=== PATIENT | female | born 1940 | race Caucasian/White ===

== ENCOUNTER 2018-05-18 11:02 | Observation (INO) | payer MEDICARE ==
[2018-05-18] MEDS ORDERED: Meclizine 25 MG Tab PO ONE (11:30)
[2018-05-18] MEDS ORDERED: Ondansetron 4 MG Tab.DIS PO ONE (11:31)
--- NOTE | 2018-05-18 11:37 | EDM.PDOC ---
ED HPI GENERAL MEDICAL PROBLEM - General Chief Complaint: ENT Problem Stated Complaint: VERTIGO,NAUSEA Time Seen by Provider: 05/18/18 11:25 Source of Information: Reports: Patient, EMS History Limitations: Reports: No Limitations - History of Present Illness INITIAL COMMENTS - FREE TEXT/NARRATIVE: Disha comes into [facility] ED by EMS with sxs of progressive vertigo. Initial sxs occurred yesterday evening when she got up from the sofa around 9 pm. She felt a rocking or pitching motion associated with some fullness in the R ear. There was no reported loss of hearing, discharge, or nasal congestion. Sxs remained mild and she was able to sleep overnight, but upon arising sxs of vertigo had escalated. There was associated nausea and some vomiting. There was no reported headache, chest pain, SOB, palpitations, LOC, or tremors. She tried no meds, but summoned EMS for transport to ED. Currently, she is comfortable while laying flat, and any effort to turn head to the R or to raise head elicits sxs. - Related Data Allergies Allergy/AdvReac Type Severity Reaction Status Date / Time Hzbhqrx-Kti-Fgm Reductase Allergy Pain Verified 05/18/18 11:10 Inhibitor Home Meds: Home Meds Fish Oil/DHA/EPA [Fish Oil 1,200 MG] 1 each PO DAILY 05/18/18 [History] Metoprolol Tartrate 25 mg PO DAILY 05/18/18 [History] Naproxen Sodium [Aleve] 220 mg PO BID PRN 05/18/18 [History] Nitroglycerin 0.4 mg SL ASDIRECTED PRN 05/18/18 [History] Past Medical History Cardiovascular History: Reports: CAD, Hypertension, Stents Oncologic (Cancer) History: Reports: Breast - Past Surgical History Cardiovascular Surgical History: Reports: Coronary Artery Stent Musculoskeletal Surgical History: Reports: Other (See Below) (titanium plate R elbow) ED ROS GENERAL - Review of Systems Review Of Systems: See Below Constitutional: Reports: No Symptoms HEENT: Reports: Vertigo, Other (R ear fullness) Respiratory: Reports: No Symptoms Cardiovascular: Reports: No Symptoms Endocrine: Reports: No Symptoms GI/Abdominal: Reports: Decreased Appetite, Nausea, Vomiting : Reports: No Symptoms Musculoskeletal: Reports: No Symptoms Skin: Reports: No Symptoms Neurological: Reports: Dizziness Psychiatric: Reports: No Symptoms Hematologic/Lymphatic: Reports: No Symptoms Immunologic: Reports: No Symptoms ED EXAM, DIZZINESS - Physical Exam Exam: See Below Exam Limited By: No Limitations General Appearance: Alert, WD/WN, Anxious, Mild Distress Eye Exam: Bilateral Eye: EOMI, Normal Inspection, Nystagmus, PERRL Nystagmus: worsens with head to R Ears: Normal External Exam, Normal Canal, Normal TMs Nose: Normal Inspection Throat/Mouth: Normal Inspection, Normal Lips, Normal Teeth, Normal Gums, Normal Oropharynx, Normal Voice, No Airway Compromise Head Exam: Normocephalic Vertigo: worsens with head to R Neck: Normal Inspection, Supple, Non-Tender Respiratory/Chest: Lungs Clear, Chest Non-Tender Cardiovascular: Regular Rate, Rhythm, No Murmur GI/Abdominal: Normal Bowel Sounds, Soft, Non-Tender, No Organomegaly, No Distention, No Mass (Female) Exam: Deferred Rectal (Female) Exam: Deferred Neurological: Alert, Normal Mood/Affect, CN II-XII Intact, No Motor/Sensory Deficits, Oriented x 3 Back Exam: Normal Inspection Extremities: Normal Inspection Psychiatric: Normal Affect, Anxious Skin Exam: Warm, Dry, Intact, Normal Color, No Rash Course - Vital Signs Text/Narrative:: Following assessment for new onset vertigo, suspected to be vestibular neuronitis, I initially administered Meclizine 25 mg po, Zofran ODT 4 mg which she vomited about 10 minutes later. I then started an IV D5LR at 150 ml/hr, and administered Benadryl 25 mg IV, Ativan 0.5 mg IV, and Zofran 4 mg IV. Sxs seem to improve and she rested quietly, while RN gradually raised HOB to approach functional position to accomodate vertigo. Attempts to ambulate have required 2 assistants, and she is incapable of being home alone tonight. She will be admitted to Observation. Last Recorded V/S: Last Vital Signs Temp 36.4 C 05/18/18 11:02 Pulse 52 L 05/18/18 11:02 Resp 11 L 05/18/18 11:02 BP 151/69 H 05/18/18 11:02 Pulse Ox 98 05/18/18 12:45 - Orders/Labs/Meds Orders: Active Orders 24 hr Category Date Time Status Dextrose 5%-Lactated Ringers 1,000 ml Med 05/18/18 12:15 Active IV ASDIRECTED Sodium Chloride 0.9% [Saline Flush] Med 05/18/18 12:04 Active 10 ml FLUSH ASDIRECTED PRN Peripheral IV Insertion Adult [OM.PC] Routine Oth 05/18/18 12:04 Ordered Medication Orders Dextrose/Lactated Ringer's (Dextrose 5%-Lactated Ringers) 1,000 mls @ 150 mls/ hr IV ASDIRECTED BRI Last Admin: 05/18/18 12:17 Dose: 150 mls/hr Sodium Chloride (Saline Flush) 10 ml FLUSH ASDIRECTED PRN PRN Reason: Keep Vein Open Last Admin: 05/18/18 12:15 Dose: 10 ml Meds: Medications Generic Name Dose Route Start Last Admin Trade Name Freq PRN Reason Stop Dose Admin Dextrose/Lactated Ringer's 1,000 mls @ 150 mls/hr 05/18/18 12:15 05/18/18 12: 17 Dextrose 5%-Lactated Ringers IV 150 mls/hr ASDIRECTED BRI Administration Sodium Chloride 10 ml 05/18/18 12:04 05/18/18 12:15 Saline Flush FLUSH 10 ml ASDIRECTED PRN Administration Keep Vein Open Discontinued Medications Generic Name Dose Route Start Last Admin Trade Name Freq PRN Reason Stop Dose Admin Diphenhydramine HCl 25 mg 05/18/18 12:14 05/18/18 12:37 Benadryl IVPUSH 05/18/18 12:15 25 mg ONETIME ONE Administration Hydrocortisone Sodium Succinate 100 mg 05/18/18 12:16 05/18/18 12:23 Solu-Cortef IVPUSH 05/18/18 12:17 100 mg ONETIME ONE Administration Lorazepam 0.5 mg 05/18/18 12:15 05/18/18 12:37 Ativan IVPUSH 05/18/18 12:16 0.5 mg ONETIME ONE Administration Meclizine HCl 25 mg 05/18/18 11:30 05/18/18 11:35 Antivert PO 05/18/18 11:31 25 mg ONETIME ONE Administration Ondansetron HCl 4 mg 05/18/18 11:31 05/18/18 11:35 Zofran Odt PO 05/18/18 11:32 4 mg ONETIME ONE Administration Ondansetron HCl 4 mg 05/18/18 12:06 05/18/18 12:23 Zofran IVPUSH 05/18/18 12:07 4 mg ONETIME ONE Administration Departure - Departure Time of Disposition: 17:13 Disposition: Refer to Observation Condition: Fair Clinical Impression: Vestibular neuronitis of right ear - Discharge Information *PRESCRIPTION DRUG MONITORING PROGRAM REVIEWED*: Not Applicable *COPY OF PRESCRIPTION DRUG MONITORING REPORT IN PATIENT JOE: Not Applicable Referrals: Gisselle Smith NP [Primary Care Provider] - Forms: ED Department Discharge - Problem List & Annotations (1) Vestibular neuronitis of right ear SNOMED Code(s): 118335583 Code(s): H81.21 - VESTIBULAR NEURONITIS, RIGHT EAR Status: Acute Current Visit: Yes Annotation/Comment:: Admit to Observation - Problem List Review Problem List Initiated/Reviewed/Updated: Yes - My Orders Last 24 Hours: My Active Orders 05/18/18 12:04 Sodium Chloride 0.9% [Saline Flush] 10 ml FLUSH ASDIRECTED PRN Peripheral IV Insertion Adult [OM.PC] Routine 05/18/18 12:15 Dextrose 5%-Lactated Ringers 1,000 ml IV ASDIRECTED - Assessment/Plan Last 24 Hours: My Active Orders 05/18/18 12:04 Sodium Chloride 0.9% [Saline Flush] 10 ml FLUSH ASDIRECTED PRN Peripheral IV Insertion Adult [OM.PC] Routine 05/18/18 12:15 Dextrose 5%-Lactated Ringers 1,000 ml IV ASDIRECTED Plan: Follow up with Hospitalist in am.
[2018-05-18] MEDS ORDERED: Ondansetron 4 MG/2 ML SDV IVPUSH ONE (12:06)
[2018-05-18] MEDS ORDERED: diphenhydrAMINE 50 MG/ML SDV IVPUSH ONE (12:14)
[2018-05-18] MEDS ORDERED: LORazepam 2 MG/ML SDV IVPUSH ONE (12:15)
[2018-05-18] MEDS: Sodium Chloride 0.9% 10 ML Syringe FLUSH PRN (12:15)
[2018-05-18] MEDS ORDERED: Hydrocortisone Sodium Succinate 100 MG/2 ML SDV IVPUSH ONE (12:16)
[2018-05-18] MEDS: Dextrose 5%-Lactated Ringers 1,000 ML IV SCH ×2 (12:17→18:28)
[2018-05-18] MEDS ORDERED: Ondansetron 4 MG/2 ML SDV IV PRN (17:26)
[2018-05-18] MEDS ORDERED: Acetaminophen 325 MG Tab PO PRN (17:26)
[2018-05-18] MEDS ORDERED: Lactated Ringers 1,000 ML IV SCH (17:30)
[2018-05-18] MEDS: Meclizine 25 MG Tab PO SCH (21:01)
[2018-05-19] MEDS: Dextrose 5%-Lactated Ringers 1,000 ML IV SCH (01:19)
[2018-05-19] MEDS: Sodium Chloride 0.9% 10 ML Syringe FLUSH PRN ×2 (08:09→11:30)
--- NOTE | 2018-05-19 08:24 | PCM.HP ---
H&P History of Present Illness - General Date of Service: 05/19/18 Admit Problem/Dx: Admission Diagnosis/Problem Admission Diagnosis/Problem Vestibular neuronitis Source of Information: Patient History Limitations: Reports: No Limitations - History of Present Illness Initial Comments - Free Text/Narative: Disha is a 77-year-old female was admitted because of vertigo. She described spinning and dizziness that started the day before yesterday, insidiously. It was associated with position changes ,and vomiting to the point she was unable to get out of bed. This morning her symptoms are much improved. She denies headache chest pain or shortness of breath. Disha has a history of coronary disease, hypertension that are all WELL-CONTROLLED. - Related Data Allergies/Adverse Reactions: Allergies Allergy/AdvReac Type Severity Reaction Status Date / Time Yshziji-Aol-Aut Reductase Allergy Pain Verified 05/18/18 11:10 Inhibitor Home Medications: Home Meds Fish Oil/DHA/EPA [Fish Oil 1,200 MG] 1 each PO DAILY 05/18/18 [History] Metoprolol Tartrate 25 mg PO DAILY 05/18/18 [History] Naproxen Sodium [Aleve] 220 mg PO BID PRN 05/18/18 [History] Nitroglycerin 0.4 mg SL ASDIRECTED PRN 05/18/18 [History] Past Medical History Cardiovascular History: Reports: CAD, Hypertension, Stents Oncologic (Cancer) History: Reports: Breast - Past Surgical History Cardiovascular Surgical History: Reports: Coronary Artery Stent Musculoskeletal Surgical History: Reports: Other (See Below) Social & Family History - Family History Family Medical History: Noncontributory - Tobacco Use Smoking Status *Q: Never Smoker Second Hand Smoke Exposure: No - Caffeine Use Caffeine Use: Reports: None - Recreational Drug Use Recreational Drug Use: No H&P Review of Systems - Review of Systems: Review Of Systems: ROS reveals no pertinent complaints other than HPI. Exam - Exam Exam: See Below - Vital Signs Vital Signs: Last Vital Signs Temp 97.2 F 05/19/18 04:41 Pulse 56 L 05/19/18 04:41 Resp 18 05/19/18 04:41 BP 128/62 05/19/18 04:41 Pulse Ox 99 05/19/18 04:41 Weight: 77.224 kg - Exam General: Alert, Oriented, 4 HEENT: PERRLA, Hearing Intact, Mucosa Moist & [place], Nares Patent, Normal Nasal Septum, Posterior Pharynx Clear, Conjunctiva Clear, EOMI, EACs Clear, TMs Clear Neck: Supple, Trachea Midline, 2 Lungs: Clear to Auscultation, Normal Respiratory Effort Cardiovascular: Regular Rate, Regular Rhythm GI/Abdominal Exam: Normal Bowel Sounds, Soft, Non-Tender, No Organomegaly, No Distention, No Abnormal Bruit, No Mass, Pelvis Stable (Female) Exam: Deferred Rectal (Female) Exam: Deferred Back Exam: Normal Inspection, Full Range of Motion, NT Extremities: Normal Inspection, Normal Range of Motion, Non-Tender, No Pedal Edema, Normal Capillary Refill Skin: Warm, Dry, Intact Neurological: Cranial Nerves Intact, Reflexes Equal Bilateral Neuro Extensive - Mental Status: Alert, Oriented x3, Normal Mood/Affect, Normal Cognition Neuro Extensive - Motor, Sensory, Reflexes: CN II-XII Intact, Normal Gait, Normal Reflexes Psychiatric: Alert, Normal Affect, Normal Mood - Patient Data Lab Results Last 24 hrs: Laboratory Results - last 24 hr 05/18/18 05/18/18 05/18/18 Range/Units 17:42 17:42 18:10 WBC 5.6 (4.5-12.0) X10-3/uL RBC 4.63 (3.23-5.20) x10(6)uL Hgb 14.2 (11.5-15.5) g/dL Hct 42.4 (30.0-51.3) % MCV 91.6 (80-96) fL MCH 30.7 (27.7-33.6) pg MCHC 33.5 (32.2-35.4) g/dL RDW 12.8 (11.5-15.5) % Plt Count 271 (125-369) X10(3)uL MPV 6.8 L (7.4-10.4) fL Add Manual Diff Yes Neutrophils % (Manual) 90 H (46-82) % Band Neutrophils % 1 (0-6) % Lymphocytes % (Manual) 9 L (13-37) % Sodium 143 (135-145) mmol/L Potassium 4.0 (3.5-5.3) mmol/L Chloride 107 (100-110) mmol/L Carbon Dioxide 28 (21-32) mmol/L BUN 15 (7-18) mg/dL Creatinine 0.8 (0.55-1.02) mg/dL Est Cr Clr Drug Dosing 50.26 mL/min Estimated GFR (MDRD) > 60 (>60) BUN/Creatinine Ratio 18.8 (9-20) Glucose 180 H (80-116) mg/dL Calcium 8.3 L (8.6-10.2) mg/dL Urine Color Yellow (YELLOW) Urine Appearance Clear (CLEAR) Urine pH 7.0 H (5.0-6.5) Ur Specific [place] 1.010 (1.010-1.025) Urine Protein Negative (NEGATIVE) mg/dL Urine Glucose (UA) Normal (NORMAL) mg/dL Urine Ketones Negative (NEGATIVE) mg/dL Urine Occult Blood Negative (NEGATIVE) Urine Nitrite Negative (NEGATIVE) Urine Bilirubin Negative (NEGATIVE) Urine Urobilinogen Normal (NEGATIVE) mg/dL Ur Leukocyte Esterase Moderate H (NEGATIVE) Urine RBC 0-5 (0-5) Urine WBC 0-5 (0-5) Ur Squamous Epith Cells Few H (NS,R,O) Urine Bacteria Few H (NS) Result Diagrams: 05/18/18 17:42 05/18/18 17:42 EKG INTERPRETATION Rhythm: NSR - Problem List (1) Vestibular neuronitis of right ear SNOMED Code(s): 695152336 ICD Code: H81.21 - VESTIBULAR NEURONITIS, RIGHT EAR Status: Acute Current Visit: Yes Problem Details: Admit to Observation (2) HTN (hypertension) SNOMED Code(s): 39831544 ICD Code: I10 - ESSENTIAL (PRIMARY) HYPERTENSION Status: Chronic Current Visit: Yes Qualifiers: Hypertension type: essential hypertension Qualified Code(s): I10 - Essential (primary) hypertension (3) CAD (coronary artery disease) SNOMED Code(s): 20202750 ICD Code: I25.10 - ATHSCL HEART DISEASE OF [place] CORONARY ARTERY W/O ANG PCTRS Status: Chronic Current Visit: Yes Qualifiers: Coronary Disease-Associated Artery/Lesion type: [place] artery Associated angina: without angina Problem List Initiated/Reviewed/Updated: Yes Orders Last 24hrs: Active Orders 24 hr Category Date Time Status Height and Weight [RC] UPON Care 05/18/18 17:26 Active Intake and Output [RC] QSHIFT Care 05/18/18 17:27 Active Oxygen Therapy [RC] PRN Care 05/18/18 17:26 Active Up With Assistance [RC] ASDIRECTED Care 05/18/18 17:26 Active VTE/DVT Education [RC] Per Unit Routine Care 05/18/18 17:26 Active Vital Signs [RC] Q4H Care 05/18/18 17:26 Active Regular Diet [DIET] Diet 05/18/18 Dinner Active Acetaminophen [Tylenol] Med 05/18/18 17:26 Active 650 mg PO Q4H PRN Dextrose 5%-Lactated Ringers 1,000 ml Med 05/18/18 12:15 Active IV ASDIRECTED Meclizine [Antivert] Med 05/18/18 21:00 Active 25 mg PO TID Ondansetron [Zofran] Med 05/18/18 17:26 Active 4 mg IV Q6H PRN Sodium Chloride 0.9% [Saline Flush] Med 05/18/18 12:04 Active 10 ml FLUSH ASDIRECTED PRN Peripheral IV Insertion Adult [OM.PC] Routine Oth 05/18/18 12:04 Ordered Resuscitation Status Routine Resus Stat 05/18/18 17:26 Ordered Medication Orders Acetaminophen (Tylenol) 650 mg PO Q4H PRN PRN Reason: Pain (Mild 1-3)/fever Dextrose/Lactated Ringer's (Dextrose 5%-Lactated Ringers) 1,000 mls @ 150 mls/ hr IV ASDIRECTED [facility] Last Admin: 05/19/18 01:19 Dose: 150 mls/hr Infusion: 05/19/18 01:09 Dose: 150 mls/hr Admin: 05/18/18 18:28 Dose: 150 mls/hr Infusion: 05/18/18 18:28 Dose: 150 mls/hr Admin: 05/18/18 12:17 Dose: 150 mls/hr Meclizine HCl (Antivert) 25 mg PO TID [facility] Last Admin: 05/18/18 21:01 Dose: 25 mg Ondansetron HCl (Zofran) 4 mg IV Q6H PRN PRN Reason: Nausea/Vomiting Sodium Chloride (Saline Flush) 10 ml FLUSH ASDIRECTED PRN PRN Reason: Keep Vein Open Last Admin: 05/19/18 08:09 Dose: 10 ml Admin: 05/18/18 12:15 Dose: 10 ml Assessment/Plan Comment:: She feels much better today. DC IVF. Encourage ambulation,oral intake. DC if able to tolerate. Meclizine PRN
[2018-05-19] MEDS: Meclizine 25 MG Tab PO SCH ×3 (08:58→20:25)
[2018-05-19] MEDS ORDERED: diphenhydrAMINE 25 MG Cap PO PRN (11:42)
[2018-05-19] MEDS ORDERED: Gadoteridol 279.3 MG/ML 20 ML SDV IV SCH (14:00)
[2018-05-20] MEDS: Meclizine 25 MG Tab PO SCH ×3 (08:10→20:49)
[2018-05-20] MEDS: Sodium Chloride 0.9% 10 ML Syringe FLUSH PRN (08:12)
--- NOTE | 2018-05-20 09:10 | PCM.PN ---
- General Info Date of Service: 05/20/18 Subjective Update: Feels plugged on the right ear.Dizziness was so bad yesterday,we held discharge, obtained an MRI and EKG.Both have come back negative Functional Status: Reports: Pain Controlled - Review of Systems Pulmonary: Reports: No Symptoms Cardiovascular: Reports: No Symptoms Gastrointestinal: Reports: No Symptoms Genitourinary: Reports: No Symptoms Musculoskeletal: Reports: No Symptoms - Patient Data Vitals - Most Recent: Last Vital Signs Temp 97.6 F 05/20/18 08:00 Pulse 52 L 05/20/18 08:10 Resp 16 05/20/18 08:00 BP 138/74 05/20/18 08:10 Pulse Ox 95 05/20/18 08:00 Weight - Most Recent: 79.832 kg I&O - Last 24 Hours: Intake & Output 05/19/18 05/20/18 05/20/18 22:59 06:59 14:59 Intake Total 400 Output Total 450 650 Balance -450 -250 Med Orders - Current: Current Medications Acetaminophen (Tylenol) 650 mg PO Q4H PRN PRN Reason: Pain (Mild 1-3)/fever Last Admin: 05/20/18 08:26 Dose: 650 mg Meclizine HCl (Antivert) 25 mg PO TID [facility] Last Admin: 05/20/18 08:10 Dose: 25 mg Metoprolol Tartrate (Lopressor) 25 mg PO BID [facility] Last Admin: 05/20/18 08:10 Dose: 25 mg Ondansetron HCl (Zofran) 4 mg IV Q6H PRN PRN Reason: Nausea/Vomiting Last Admin: 05/19/18 11:30 Dose: 4 mg Sodium Chloride (Saline Flush) 10 ml FLUSH ASDIRECTED PRN PRN Reason: Keep Vein Open Last Admin: 05/20/18 08:12 Dose: 10 ml Discontinued Medications Diphenhydramine HCl (Benadryl) 25 mg IVPUSH ONETIME ONE Stop: 05/18/18 12:15 Last Admin: 05/18/18 12:37 Dose: 25 mg Gadoteridol (Prohance) 20 ml IV . DIRECTED [facility] Last Admin: 05/19/18 14:27 Dose: 15 ml Hydrocortisone Sodium Succinate (Solu-Cortef) 100 mg IVPUSH ONETIME ONE Stop: 05/18/18 12:17 Last Admin: 05/18/18 12:23 Dose: 100 mg Dextrose/Lactated Ringer's (Dextrose 5%-Lactated Ringers) 1,000 mls @ 150 mls/ hr IV ASDIRECTED BRI Stop: 05/19/18 07:45 Last Admin: 05/19/18 01:19 Dose: 150 mls/hr Lactated Ringer's (Ringers, Lactated) 1,000 mls @ 125 mls/hr IV ASDIRECTED BRI Lorazepam (Ativan) 0.5 mg IVPUSH ONETIME ONE Stop: 05/18/18 12:16 Last Admin: 05/18/18 12:37 Dose: 0.5 mg Meclizine HCl (Antivert) 25 mg PO ONETIME ONE Stop: 05/18/18 11:31 Last Admin: 05/18/18 11:35 Dose: 25 mg Ondansetron HCl (Zofran Odt) 4 mg PO ONETIME ONE Stop: 05/18/18 11:32 Last Admin: 05/18/18 11:35 Dose: 4 mg Ondansetron HCl (Zofran) 4 mg IVPUSH ONETIME ONE Stop: 05/18/18 12:07 Last Admin: 05/18/18 12:23 Dose: 4 mg - Exam General: Alert Neurological: No New Focal Deficit Psy/Mental Status: Alert, Normal Affect EKG INTERPRETATION EKG Date: 05/19/18 Rhythm: NSR - Problem List & Annotations (1) Vestibular neuronitis of right ear SNOMED Code(s): 718588543 Code(s): H81.21 - VESTIBULAR NEURONITIS, RIGHT EAR Status: Acute Current Visit: Yes Annotation/Comment:: Admit to Observation (2) HTN (hypertension) SNOMED Code(s): 22322997 Code(s): I10 - ESSENTIAL (PRIMARY) HYPERTENSION Status: Chronic Current Visit: Yes Qualifiers: Hypertension type: essential hypertension Qualified Code(s): I10 - Essential (primary) hypertension (3) CAD (coronary artery disease) SNOMED Code(s): 97964078 Code(s): I25.10 - ATHSCL HEART DISEASE OF [place] CORONARY ARTERY W/O ANG PCTRS Status: Chronic Current Visit: Yes Qualifiers: Coronary Disease-Associated Artery/Lesion type: [place] artery Associated angina: without angina (4) Eustachian tube dysfunction SNOMED Code(s): 16160967 Code(s): H69.80 - OTH DISRD OF [place] TUBE, UNSPECIFIED EAR Status: Acute Current Visit: Yes Qualifiers: Laterality: right Qualified Code(s): H69.81 - Other specified disorders of Eustachian tube, right ear - Problem List Review Problem List Initiated/Reviewed/Updated: Yes - My Orders Last 24 Hours: My Active Orders 05/19/18 08:26 Ready for Discharge [RC] PER UNIT ROUTINE 05/19/18 08:29 EKG 12 Lead [EK] Routine 05/19/18 08:30 EKG Documentation Completion [RC] ASDIRECTED 05/19/18 08:48 PT Evaluation and Treatment [CONS] Routine 05/19/18 11:25 Brain w wo Cont [MR] Routine 05/19/18 12:00 Metoprolol Tartrate [Lopressor] 25 mg PO BID - Plan Plan:: She feels much better today. DC IVF. Encourage ambulation,oral intake. DC if able to tolerate walking. Trial of Claritin D for ETD
[2018-05-20] MEDS ORDERED: Bisacodyl 5 MG Tab PO PRN (19:59)
--- NOTE | 2018-05-21 08:01 | PCM.PN ---
- General Info Date of Service: 05/21/18 Admission Dx/Problem (Free Text): Patient states she's feeling much better. She denies nausea, vomiting, fevers, chills. She says she is a little wobbly when she walks. Does well with a cane. She has a cane and a walker at home. - Patient Data Vitals - Most Recent: Last Vital Signs Temp 98.0 F 05/20/18 23:11 Pulse 55 L 05/20/18 23:11 Resp 16 05/20/18 23:11 BP 148/78 H 05/20/18 23:11 Pulse Ox 96 05/20/18 23:11 Weight - Most Recent: 174 lb 6 oz I&O - Last 24 Hours: Intake & Output 05/20/18 05/21/18 05/21/18 22:59 06:59 14:59 Output Total 200 825 Balance -200 -825 Med Orders - Current: Current Medications Acetaminophen (Tylenol) 650 mg PO Q4H PRN PRN Reason: Pain (Mild 1-3)/fever Last Admin: 05/20/18 08:26 Dose: 650 mg Bisacodyl (Dulcolax) 5 mg PO DAILY PRN PRN Reason: Constipation Last Admin: 05/20/18 20:48 Dose: 5 mg Meclizine HCl (Antivert) 25 mg PO TID [facility] Last Admin: 05/20/18 20:49 Dose: 25 mg Metoprolol Tartrate (Lopressor) 25 mg PO DAILY [facility] Ondansetron HCl (Zofran) 4 mg IV Q6H PRN PRN Reason: Nausea/Vomiting Last Admin: 05/19/18 11:30 Dose: 4 mg Sodium Chloride (Saline Flush) 10 ml FLUSH ASDIRECTED PRN PRN Reason: Keep Vein Open Last Admin: 05/20/18 08:12 Dose: 10 ml Discontinued Medications Diphenhydramine HCl (Benadryl) 25 mg IVPUSH ONETIME ONE Stop: 05/18/18 12:15 Last Admin: 05/18/18 12:37 Dose: 25 mg Gadoteridol (Prohance) 20 ml IV . DIRECTED [facility] Last Admin: 05/19/18 14:27 Dose: 15 ml Hydrocortisone Sodium Succinate (Solu-Cortef) 100 mg IVPUSH ONETIME ONE Stop: 05/18/18 12:17 Last Admin: 05/18/18 12:23 Dose: 100 mg Dextrose/Lactated Ringer's (Dextrose 5%-Lactated Ringers) 1,000 mls @ 150 mls/ hr IV ASDIRECTED BRI Stop: 05/19/18 07:45 Last Admin: 05/19/18 01:19 Dose: 150 mls/hr Lactated Ringer's (Ringers, Lactated) 1,000 mls @ 125 mls/hr IV ASDIRECTED [facility] Lorazepam (Ativan) 0.5 mg IVPUSH ONETIME ONE Stop: 05/18/18 12:16 Last Admin: 05/18/18 12:37 Dose: 0.5 mg Meclizine HCl (Antivert) 25 mg PO ONETIME ONE Stop: 05/18/18 11:31 Last Admin: 05/18/18 11:35 Dose: 25 mg Metoprolol Tartrate (Lopressor) 25 mg PO BID [facility] Last Admin: 05/20/18 08:10 Dose: 25 mg Ondansetron HCl (Zofran Odt) 4 mg PO ONETIME ONE Stop: 05/18/18 11:32 Last Admin: 05/18/18 11:35 Dose: 4 mg Ondansetron HCl (Zofran) 4 mg IVPUSH ONETIME ONE Stop: 05/18/18 12:07 Last Admin: 05/18/18 12:23 Dose: 4 mg - Exam General: Alert, Oriented, Cooperative Lungs: Clear to Auscultation, Normal Respiratory Effort Cardiovascular: Regular Rate, Regular Rhythm, No Murmurs Extremities: No Pedal Edema - Problem List & Annotations (1) Vestibular neuronitis of right ear SNOMED Code(s): 303925375 Code(s): H81.21 - VESTIBULAR NEURONITIS, RIGHT EAR Status: Acute Current Visit: Yes Annotation/Comment:: Admit to Observation (2) HTN (hypertension) SNOMED Code(s): 45403309 Code(s): I10 - ESSENTIAL (PRIMARY) HYPERTENSION Status: Chronic Current Visit: Yes Qualifiers: Hypertension type: essential hypertension Qualified Code(s): I10 - Essential (primary) hypertension - Problem List Review Problem List Initiated/Reviewed/Updated: Yes - Plan Plan:: Results of AL discuss. Discharge to home on her regular medications and meclizine when necessary. Follow-up with her regular provider in one week. Uses a cane or walker until she feels all her dizziness is completely gone.
--- NOTE | 2018-05-21 08:06 | PCM.DCSUM1 ---
Discharge Summary - Hospital Course Free Text/Narrative:: Hospital course-patient was better for observation and given meclizine. Patient had a slow recovery. And MRI of the brain which was negative. She was going to be sent home but there was a bad blizzard and could not be discharge because she could get home. The next day she was discharge which is today. Patient states she's feeling much better with just a little dizziness. No nausea, vomiting, fevers or chills. The only lab that was abnormal was blood sugar was 180 when she first came in. Labs were not repeated. Brief History: Disha is a 77-year-old female was admitted because of vertigo. She described spinning and dizziness that started the day before yesterday, insidiously. It was associated with position changes ,and vomiting to the point she was unable to get out of bed. This morning her symptoms are much improved. She denies headache chest pain or shortness of breath. Disha has a history of coronary disease, hypertension that are all WELL-CONTROLLED. Diagnosis: Stroke: No - Discharge Data Discharge Date: 05/21/18 Discharge Disposition: Home, Self-Care 01 Condition: Stable - Discharge Diagnosis/Problem(s) (1) Vestibular neuronitis of right ear SNOMED Code(s): 114429440 ICD Code: H81.21 - VESTIBULAR NEURONITIS, RIGHT EAR Status: Acute Current Visit: Yes Problem Details: Admit to Observation (2) HTN (hypertension) SNOMED Code(s): 09020237 ICD Code: I10 - ESSENTIAL (PRIMARY) HYPERTENSION Status: Chronic Current Visit: Yes Qualifiers: Hypertension type: essential hypertension Qualified Code(s): I10 - Essential (primary) hypertension - Patient Summary/Data Consults: Consultations 05/19/18 08:48 PT Evaluation and Treatment [CONS] Routine Please Evaluate and Treat. PT Reason for Consult: Vestibular This query below is only for informational purposes and is not editable. Admission Diagnosis/Problem: Vestibular neuronitis - Patient Instructions Diet: Regular Diet as Tolerated Activity: As Tolerated Driving: May Drive Today Showering/Bathing: May Shower Other/Special Instructions: 1. Recheck with Gisselle Smith in 1 week. 2. Use cane or walker until she feels completely normal. She says she has his devices at home. - Discharge Plan *PRESCRIPTION DRUG MONITORING PROGRAM REVIEWED*: Not Applicable *COPY OF PRESCRIPTION DRUG MONITORING REPORT IN PATIENT JOE: Not Applicable Prescriptions/Med Rec: Meclizine HCl 25 mg PO TID PRN #15 tablet PRN Reason: Dizziness Home Medications: Home Meds Fish Oil/DHA/EPA [Fish Oil 1,200 MG] 1 each PO DAILY 05/18/18 [History] Metoprolol Tartrate 25 mg PO DAILY 05/18/18 [History] Naproxen Sodium [Aleve] 220 mg PO BID PRN 05/18/18 [History] Nitroglycerin 0.4 mg SL ASDIRECTED PRN 05/18/18 [History] Meclizine HCl 25 mg PO TID PRN #15 tablet 05/19/18 [Rx] Patient Handouts: Meclizine tablets or capsules, Acoustic Neuroma, Adult Forms: ED Department Discharge Referrals: Gisselle Smith NP [Primary Care Provider] - - Discharge Summary/Plan Comment DC Time >30 min.: No - Patient Data Vitals - Most Recent: Last Vital Signs Temp 98.0 F 05/20/18 23:11 Pulse 55 L 05/20/18 23:11 Resp 16 05/20/18 23:11 BP 148/78 H 05/20/18 23:11 Pulse Ox 96 05/20/18 23:11 Weight - Most Recent: 174 lb 6 oz I&O - Last 24 hours: Intake & Output 05/20/18 05/21/18 05/21/18 22:59 06:59 14:59 Output Total 200 825 Balance -200 -825 Med Orders - Current: Current Medications Acetaminophen (Tylenol) 650 mg PO Q4H PRN PRN Reason: Pain (Mild 1-3)/fever Last Admin: 05/20/18 08:26 Dose: 650 mg Bisacodyl (Dulcolax) 5 mg PO DAILY PRN PRN Reason: Constipation Last Admin: 05/20/18 20:48 Dose: 5 mg Meclizine HCl (Antivert) 25 mg PO TID BRI Last Admin: 05/20/18 20:49 Dose: 25 mg Metoprolol Tartrate (Lopressor) 25 mg PO DAILY BRI Ondansetron HCl (Zofran) 4 mg IV Q6H PRN PRN Reason: Nausea/Vomiting Last Admin: 05/19/18 11:30 Dose: 4 mg Sodium Chloride (Saline Flush) 10 ml FLUSH ASDIRECTED PRN PRN Reason: Keep Vein Open Last Admin: 05/20/18 08:12 Dose: 10 ml Discontinued Medications Diphenhydramine HCl (Benadryl) 25 mg IVPUSH ONETIME ONE Stop: 05/18/18 12:15 Last Admin: 05/18/18 12:37 Dose: 25 mg Gadoteridol (Prohance) 20 ml IV . DIRECTED [facility] Last Admin: 05/19/18 14:27 Dose: 15 ml Hydrocortisone Sodium Succinate (Solu-Cortef) 100 mg IVPUSH ONETIME ONE Stop: 05/18/18 12:17 Last Admin: 05/18/18 12:23 Dose: 100 mg Dextrose/Lactated Ringer's (Dextrose 5%-Lactated Ringers) 1,000 mls @ 150 mls/ hr IV ASDIRECTED [facility] Stop: 05/19/18 07:45 Last Admin: 05/19/18 01:19 Dose: 150 mls/hr Lactated Ringer's (Ringers, Lactated) 1,000 mls @ 125 mls/hr IV ASDIRECTED [facility] Lorazepam (Ativan) 0.5 mg IVPUSH ONETIME ONE Stop: 05/18/18 12:16 Last Admin: 05/18/18 12:37 Dose: 0.5 mg Meclizine HCl (Antivert) 25 mg PO ONETIME ONE Stop: 05/18/18 11:31 Last Admin: 05/18/18 11:35 Dose: 25 mg Metoprolol Tartrate (Lopressor) 25 mg PO BID [facility] Last Admin: 05/20/18 08:10 Dose: 25 mg Ondansetron HCl (Zofran Odt) 4 mg PO ONETIME ONE Stop: 05/18/18 11:32 Last Admin: 05/18/18 11:35 Dose: 4 mg Ondansetron HCl (Zofran) 4 mg IVPUSH ONETIME ONE Stop: 05/18/18 12:07 Last Admin: 05/18/18 12:23 Dose: 4 mg
[2018-05-21] MEDS: Meclizine 25 MG Tab PO SCH (08:08)
[2018-05-21] MEDS ORDERED: Metoprolol Tartrate 25 MG Tab *PTOM PO SCH (09:00)
== END 2018-05-21 13:10 | disposition home or self-care (01) ==
LOC: FB.ED 11:02 → FB.MS 17:14
PROVIDERS: ADMIT Family Medicine; ATTEND Family Medicine
DX: H81.21 Vestibular neuronitis, right ear (principal); H69.81 Other specified disorders of Eustachian tube, right ear; I25.10 Atherosclerotic heart disease of native coronary artery without angina pectoris; I10 Essential (primary) hypertension; Z88.8 Allergy status to other drugs, medicaments and biological substances; Z95.5 Presence of coronary angioplasty implant and graft; Z79.899 Other long term (current) drug therapy
CPT/HCPCS: 36415; 70553; 80048; 81001; 85025; 93005; 96361; 96374; 96375; 96376; 97161-GP; 99284; 99284-25; A9270-GY; A9579; G0378; J1200; J1720; J2060; J2405; J7042

== ENCOUNTER 2018-09-13 21:03 | Emergency (ER) | payer MEDICARE ==
--- NOTE | 2018-09-13 21:30 | EDM.PDOC ---
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 - Related Data Allergies Allergy/AdvReac Type Severity Reaction Status Date / Time Hukdrhv-Cig-Gji Reductase Allergy Pain Verified 09/13/18 21:14 Inhibitor Home Meds: Home Meds Fish Oil/DHA/EPA [Fish Oil 1,200 MG] 1 each PO DAILY 05/18/18 [History] Metoprolol Tartrate 25 mg PO DAILY 05/18/18 [History] Nitroglycerin 0.4 mg SL ASDIRECTED PRN 05/18/18 [History] Acetaminophen [Tylenol Extra Strength] 1,000 mg PO DAILY PRN 09/13/18 [History] Lisinopril 10 mg PO DAILY 09/13/18 [History] Past Medical History Cardiovascular History: Reports: CAD, Hypertension, Stents Oncologic (Cancer) History: Reports: Breast - Past Surgical History Cardiovascular Surgical History: Reports: Coronary Artery Stent Musculoskeletal Surgical History: Reports: Other (See Below) Social & Family History - Family History Family Medical History: Noncontributory - Caffeine Use Caffeine Use: Reports: None ED ROS GENERAL - Review of Systems Review Of Systems: See Below Constitutional: Reports: Fatigue. Denies: Fever, Chills HEENT: Reports: No Symptoms Respiratory: Reports: Shortness of Breath. Denies: Wheezing, Pleuritic Chest Pain, Cough, Sputum Cardiovascular: Reports: No Symptoms. Denies: Chest Pain, Lightheadedness, Orthopnea, Palpitations, Syncope GI/Abdominal: Reports: No Symptoms Musculoskeletal: Reports: No Symptoms Skin: Reports: No Symptoms Neurological: Reports: No Symptoms. Denies: Confusion, Dizziness, Seizure, Syncope, Tingling, Weakness Psychiatric: Reports: No Symptoms ED EXAM, GENERAL - Physical Exam Exam: See Below Exam Limited By: No Limitations General Appearance: Alert, No Apparent Distress Nose: Normal Inspection Throat/Mouth: Normal Inspection, Normal Oropharynx Head: Atraumatic, Normocephalic Neck: Normal Inspection, Supple, Non-Tender Respiratory/Chest: No Respiratory Distress, Lungs Clear, Normal Breath Sounds, No Accessory Muscle Use Cardiovascular: Normal Peripheral Pulses, Regular Rate, Rhythm, No Edema, No Gallop GI/Abdominal: Normal Bowel Sounds, Soft, Non-Tender, No Distention Extremities: Normal Inspection, Normal Range of Motion, Non-Tender Neurological: Alert, Oriented, CN II-XII Intact, Normal Reflexes, No Motor/ Sensory Deficits Skin Exam: Warm, Dry Course - Vital Signs Text/Narrative:: EKG shows NSR / labs results are unremarkable and explained to pt, CXR shows no acute findings. pt is comfortable here after Gi cocktail and feels the chest burning sensation has almost gone but continue with bilateral jaw/ teeth discomfort. pt has gastric reflex sx , Her CAD is stable. pt is medically stable for discharge home with supportive mng, was prescribed Prilosec and asked to follow with her PCP in 2-3 days fro re-check. Last Recorded V/S: Last Vital Signs Temp 37.3 C 09/13/18 21:05 Pulse 79 09/13/18 21:05 Resp 20 09/13/18 21:05 BP 129/65 09/13/18 21:05 Pulse Ox 100 09/13/18 21:05 - Orders/Labs/Meds Orders: Active Orders 24 hr Category Date Time Status EKG Documentation Completion [RC] ASDIRECTED Care 09/13/18 21:33 Active Chest 1V Frontal [CR] Stat Exams 09/13/18 21:33 Taken D-DIMER QUANTITATIVE [COAG] Stat Lab 09/13/18 22:21 Ordered EKG 12 Lead [EK] Routine Ther 09/13/18 21:33 Ordered Labs: Laboratory Tests 09/13/18 09/13/18 09/13/18 Range/Units 21:40 21:40 21:40 WBC 11.8 (4.5-12.0) X10-3/uL RBC 3.77 (3.23-5.20) x10(6)uL Hgb 11.8 (11.5-15.5) g/dL Hct 35.0 (30.0-51.3) % MCV 92.9 (80-96) fL MCH 31.4 (27.7-33.6) pg MCHC 33.8 (32.2-35.4) g/dL RDW 13.5 (11.5-15.5) % Plt Count 259 (125-369) X10(3)uL Sodium 142 (135-145) mmol/L Potassium 4.3 (3.5-5.3) mmol/L Chloride 104 (100-110) mmol/L Carbon Dioxide 31 (21-32) mmol/L BUN 16 (7-18) mg/dL Creatinine 1.1 H (0.55-1.02) mg/dL Est Cr Clr Drug Dosing 34.41 mL/min Estimated GFR (MDRD) 48 L (>60) BUN/Creatinine Ratio 14.5 (9-20) Glucose 103 (80-116) mg/dL Calcium 8.5 L (8.6-10.2) mg/dL Total Bilirubin 0.3 (0.1-1.3) mg/dL AST 16 (5-25) IU/L ALT 35 (12-36) U/L Alkaline Phosphatase 114 H (56-112) IU/L Troponin I < 0.017 L (<0.017-0.056) ng/mL NT-Pro-B Natriuret Pep 198 (<=450) pg/mL Total Protein 6.4 (6.0-8.0) g/dL Albumin 2.9 L (3.2-4.6) g/dL Globulin 3.5 g/dL Albumin/Globulin Ratio 0.8 Meds: Medications Discontinued Medications Generic Name Dose Route Start Last Admin Trade Name Stanislav PRN Reason Stop Dose Admin Al Hydroxide/Mg Hydroxide 15 0 ml 09/13/18 22:23 09/13/18 22:29 ml/ Lidocaine HCl 15 ml PO 09/13/18 22:24 15 ml ONETIME ONE Administration Departure - Departure Time of Disposition: 23:01 Disposition: Home, Self-Care 01 Clinical Impression: Gastric reflux - Discharge Information - My Orders Last 24 Hours: My Active Orders 09/13/18 21:33 EKG Documentation Completion [RC] ASDIRECTED Chest 1V Frontal [CR] Stat EKG 12 Lead [EK] Routine 09/13/18 22:21 D-DIMER QUANTITATIVE [COAG] Stat - Assessment/Plan Last 24 Hours: My Active Orders 09/13/18 21:33 EKG Documentation Completion [RC] ASDIRECTED Chest 1V Frontal [CR] Stat EKG 12 Lead [EK] Routine 09/13/18 22:21 D-DIMER QUANTITATIVE [COAG] Stat
[2018-09-13] MEDS ORDERED: Alum Hydroxide/Mag Hydroxide 15 ML, Lidocaine 2% 15 ML PO ONE ×2 (22:23)
--- NOTE | 2018-09-14 12:39 | CR ---
INDICATION: Chest pain. CHEST: An AP upright portable view of the chest was obtained. The chest is rotated to the right. The heart is generous in size. The aorta is tortuous with calcification at the arch. Post median sternotomy change is noted. Overlying EKG leads are noted, as well as snaps. Clips are noted at the left axilla and at the left breast, suggesting lumpectomy and axillary node dissection for breast CA - correlate clinically. A definite active infiltrate or effusion was not identified. No evidence of CHF is seen. IMPRESSION: No acute process. MTDD
== END 2018-09-13 23:15 | disposition home or self-care (01) ==
LOC: FB.ED 21:03
DX: K21.9 Gastro-esophageal reflux disease without esophagitis (principal); I10 Essential (primary) hypertension; I25.10 Atherosclerotic heart disease of native coronary artery without angina pectoris; Z95.5 Presence of coronary angioplasty implant and graft; Z79.899 Other long term (current) drug therapy; Z88.8 Allergy status to other drugs, medicaments and biological substances
CPT/HCPCS: 36415; 71045; 80053; 83880; 84484; 85027; 93005; 99285; A9270; 93010; 99284

== ENCOUNTER 2021-06-11 11:57 | Emergency (ER) | payer MEDICARE | END 2021-06-11 13:25 | disposition home or self-care (01) | LOC: FB.ED 11:57 | DX: R07.81 Pleurodynia (principal); I25.10 Atherosclerotic heart disease of native coronary artery without angina pectoris; I10 Essential (primary) hypertension; Z88.8 Allergy status to other drugs, medicaments and biological substances; Z79.899 Other long term (current) drug therapy | CPT/HCPCS: 36415; 71045; 80053; 84484; 85025; 93005; 99284-25 ==

== ENCOUNTER 2022-03-14 14:10 | Emergency (ER) | payer MEDICARE ==
[2022-03-14] MEDS ORDERED: Sodium Chloride 0.9% 10 ML Syringe FLUSH PRN (14:14)
[2022-03-14] MEDS ORDERED: Nitroglycerin 0.4 MG Tab.SL SL PRN (14:16)
[2022-03-14] MEDS ORDERED: Aspirin 81 MG Tab.Chew PO STA (14:16)
[2022-03-14 14:57] LABS: ESTIMATED GFR 57 mL/min (>60)
== END 2022-03-14 18:00 | disposition home or self-care (01) ==
LOC: FB.ED 14:10
DX: R07.89 Other chest pain (principal); E78.5 Hyperlipidemia, unspecified; I25.10 Atherosclerotic heart disease of native coronary artery without angina pectoris; I10 Essential (primary) hypertension; E66.9 Obesity, unspecified; Z68.30 Body mass index [BMI] 30.0-30.9, adult; Z95.1 Presence of aortocoronary bypass graft; Z88.8 Allergy status to other drugs, medicaments and biological substances
CPT/HCPCS: 36415; 71045; 80053; 83880; 84484; 85025; 85610; 85730; 93005; 93010; 99283; 99285; A9270-GY

== ENCOUNTER 2024-08-16 08:23 | Day surgery (SDC) | payer BC, MEDICARE ==
[2024-08-16] MEDS ORDERED: Midazolam 1 MG/ML 2 ML SDV IV ONE (08:24)
[2024-08-16] MEDS ORDERED: fentaNYL 100 MCG/2 ML SDV IV ONE (08:24)
[2024-08-16] MEDS ORDERED: Sodium Chloride 0.9% 10 ML Syringe FLUSH PRN (08:30)
[2024-08-16] MEDS: Lactated Ringers 1,000 ML IV PRN (09:09)
[2024-08-16] MEDS: acetaZOLAMIDE 500 MG Cap.ER PO ONE (10:40)
== END 2024-08-16 11:35 | disposition home or self-care (01) ==
LOC: FB.SDS 08:23
PROVIDERS: ATTEND Ophthalmology
DX: H25.813 Combined forms of age-related cataract, bilateral (principal); I10 Essential (primary) hypertension; E66.9 Obesity, unspecified; Z88.8 Allergy status to other drugs, medicaments and biological substances; Z68.37 Body mass index [BMI] 37.0-37.9, adult; Z79.82 Long term (current) use of aspirin; Z79.899 Other long term (current) drug therapy
CPT/HCPCS: 00142; 66984; 99100; A9270; J2250; J3010; J7120; V2632

== ENCOUNTER 2024-08-30 06:35 | Day surgery (SDC) | payer BC ==
[2024-08-30] MEDS ORDERED: Midazolam 1 MG/ML 2 ML SDV IV ONE (06:36)
[2024-08-30] MEDS ORDERED: fentaNYL 100 MCG/2 ML SDV IV ONE (06:36)
[2024-08-30] MEDS ORDERED: Sodium Chloride 0.9% 10 ML Syringe FLUSH PRN (06:45)
[2024-08-30] MEDS: Lactated Ringers 1,000 ML IV PRN (07:30)
[2024-08-30] MEDS: acetaZOLAMIDE 500 MG Cap.ER PO ONE (10:16)
== END 2024-08-30 10:35 | disposition home or self-care (01) ==
LOC: FB.SDS 06:35
PROVIDERS: ATTEND Ophthalmology
DX: H25.9 Unspecified age-related cataract (principal); I10 Essential (primary) hypertension; E78.2 Mixed hyperlipidemia; E66.9 Obesity, unspecified; Z79.82 Long term (current) use of aspirin; Z88.8 Allergy status to other drugs, medicaments and biological substances; Z68.35 Body mass index [BMI] 35.0-35.9, adult; Z79.899 Other long term (current) drug therapy
CPT/HCPCS: 00142; 66984; 99100; A9270; J2250; J3010; J7120; V2632